=== PATIENT | female | born 1965 | race Caucasian/White ===

== ENCOUNTER 2017-09-12 14:58 | Emergency (ER) | payer SELFPAY ==
[2017-09-12 15:15] VITALS: BP 169/109; TEMP 98.6; O2SAT 98
--- NOTE | 2017-09-12 15:27 | ED.PDOC ---
History of Present Illness - General Chief Complaint: Lower Extremity Injury Stated Complaint: foot pain Time Seen by Provider: 09/12/17 15:25 Source: patient Exam Limitations: no limitations - History of Present Illness Initial Comments: Gladys Larson 51 y/o female stated that she twisted her left foot after stepping on a ridge 3 weeks ago at a friends house which happened nightime.Stated continue to have sharp pain on weight bearing.She had been wearing walking boot ortho. Occurred: other - 3 weeks ago Pain - Lower Extremity: moderate: Left Foot Method of Injury: twisted Improving Factors: rest Worsening Factors: movement Associated Symptoms: pain weight bearing Allergies/Adverse Reactions: Allergies Penicillins Allergy (Verified 09/12/17 15:15) Sulfa Antibiotics Allergy (Verified 09/12/17 15:15) Home Medications: Ambulatory Orders Baclofen 10 mg PO PRN PRN 03/06/16 Dicyclomine HCl PRN 03/06/16 Lisinopril/Hctz 20-12.5 mg [Zestoretic 20-12.5 mg] 1 ea PO DAILY 03/06/16 Naproxen Sodium 500 mg PO BID #60 tab 03/06/16 QUEtiapine FUMARATE [Seroquel] 100 mg PO BEDTIME 03/06/16 Past Medical History (General) - Patient Medical History Hx Stroke: No Hx Congestive Heart Failure: No Hx Hypertension: Yes Hx Diabetes: No Hx MRSA: No Surgical History: tonsillectomy, other - ORIF-right arm, left leg - Vaccination History Hx Tetanus, Diphtheria Vaccination: Yes Hx Influenza Vaccination: No Hx Pneumococcal Vaccination: No - Social History Hx Tobacco Use: No Hx Chewing Tobacco Use: No Hx Alcohol Use: No Hx Substance Use: No Hx Substance Use Treatment: No Hx Suspected Abuse: No Family Medical History - Family History Mother Family History: No Known Physical Exam - Physical Exam General Appearance: Alert, Comfortable, No apparent distress Eyes, Ears, Nose, Throat: normal ENT inspection Neck: non-tender, full range of motion, supple Cardiovascular/Respiratory: regular rate, rhythm, no M/R/G, normal peripheral pulses, no JVD Gastrointestinal/Abdominal: non-tender, no organomegaly Back: no CVA tenderness, no vertebral tenderness Thigh/Hip: no evidence of injury Leg: no evidence of injury Ankle: no evidence of injury Foot: bone tenderness - mid foot left, ecchymosis - faint left foot, limited ROM - left foot Neuro/Tendon: normal sensation, normal motor functions, responds to pain Mental Status: alert, oriented x 3 Progress - Progress Progress: 09/12/17 15:45 Vital Signs - 8 hr 09/12/17 15:10 Temperature 98.6 F Pulse Rate [ 88 pulse ox] Respiratory 20 Rate Blood Pressure 169/109 [Left Arm] O2 Sat by Pulse 98 Oximetry - EKG/XRAY/CT XRAY: left foot -no acute fracture;subluxation 3rd /2nd toe left with avascular necrosis Departure - Departure Clinical Impression: Pain in left foot Sprain of foot, left Qualifiers: Encounter type: initial encounter Qualified Code(s): S93.602A - Unspecified sprain of left foot, initial encounter Time of Disposition: 16:27 Disposition: Discharge to Home or Self Care Departure Forms: ED Discharge - Pt. Copy, Patient Portal Self Enrollment Instructions: DI for Foot Sprain Home Medications: Ambulatory Orders Baclofen 10 mg PO PRN PRN 03/06/16 Dicyclomine HCl PRN 03/06/16 Lisinopril/Hctz 20-12.5 mg [Zestoretic 20-12.5 mg] 1 ea PO DAILY 03/06/16 Naproxen Sodium 500 mg PO BID #60 tab 03/06/16 QUEtiapine FUMARATE [Seroquel] 100 mg PO BEDTIME 03/06/16 Additional Instructions: Continue with walking boot;May use Aspercreme (otc) apply to affected area 3 x a day for 2-3 weeks;Make an appointment with orthopedist or [facility] of choice
--- NOTE | 2017-09-12 16:12 | RAD ---
EXAM DESCRIPTION: Foot,Left 3 Views CLINICAL HISTORY: 51 years, Female, fall COMPARISON: None TECHNIQUE: AP, lateral, and oblique views of the left foot FINDINGS: Abnormal alignment at the third metatarsal phalangeal joint is noted suggesting subluxation or dislocation of the proximal phalanx of the third toe. Flattened head of the third metatarsal is noted suggesting chronic arthritic change or old healed avascular necrosis. No mid foot malalignment. 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 Periarticular cystic changes are seen in the base of the proximal phalanx of the second toe. Lateral view shows intact talus and calcaneus. No mid foot malalignment. IMPRESSION: Subluxation at the third metatarsal phalangeal joint. Deformities of the heads of second and third metatarsals suggest old trauma or old avascular necrosis. See above. Electronically signed by: Lopez Busch MD 09/12/2017 4:11 PM CDT
== END 2017-09-12 16:35 | disposition home or self-care (01) ==
LOC: ER 14:58
DX: S93.602A Unspecified sprain of left foot, initial encounter (principal); I10 Essential (primary) hypertension; X50.1XXA Overexertion from prolonged static or awkward postures, initial encounter; Y92.89 Other specified places as the place of occurrence of the external cause